=== PATIENT | female | born 1990 | race Caucasian/White ===

== ENCOUNTER → 2020-02-19 11:39 | Outpatient (BNVA) | payer MEDICAID, SELFPAY | PROVIDERS: PCP Physician Assistant Medical; Referring Provider Physician Assistant Medical; Visit Provider Obstetrics & Gynecology | DX: Z76.89 Persons encountering health services in other specified circumstances (principal) ==

== ENCOUNTER 2020-06-20 11:18 | Outpatient (REF) | payer MEDICAID, SELFPAY ==
[2020-06-21 03:30] LABS: CT PCR NOT DETECTED (Not Detect.); NG PCR NOT DETECTED (Not Detect.)
[2020-06-21 12:33] LABS: BV Int Neg Control Negative (Negative); BV Int Pos Control Positive (Positive)
[2020-06-26 10:22] LABS: HPV 16 RNA NOT DETECTED (NOT DETECTED); HPV mRNA E6/E7 rflx Detected (Not Detected)
== END 2020-06-20 11:19 | disposition home or self-care (01) ==
LOC: HO.LAB 11:18
PROVIDERS: Visit Provider Obstetrics & Gynecology
DX: Z30.09 Encounter for other general counseling and advice on contraception (principal); Z11.51 Encounter for screening for human papillomavirus (HPV); Z12.4 Encounter for screening for malignant neoplasm of cervix; N93.9 Abnormal uterine and vaginal bleeding, unspecified
CPT/HCPCS: 87480; 87491; 87510; 87591; 87624; 87625; 87660; 88141; 88142; 99212

== ENCOUNTER 2020-07-10 18:49 | Outpatient (REF) | payer MEDICAID, SELFPAY ==
--- NOTE | ~2020-07-10 | MR_ITS ---
EXAMINATION: MR LUMBAR SPINE WITHOUT CONTRAST CLINICAL INFORMATION: Paresthesia of the skin. Low back pain. Bilateral foot numbness. COMPARISON: None available. TECHNIQUE: MRI of the lumbar spine was obtained using routine sequences without contrast. FINDINGS: Normal anatomic alignment. Moderate degenerative disc disease at L4-L5 and L5-S1. Associated mild mixed Modic type discogenic endplate changes including minimal Modic type I discogenic edema at L4-L5. No additional suspicious marrow edema. The vertebral body heights are largely maintained. The conus medullaris terminates at the level of L1-L2. The distal spinal cord is normal in appearance. Mild subcutaneous edema within the soft tissues of the back from L1-L4. No additional significant abnormalities of the paraspinal musculature. Limited evaluation of the intra-abdominal structures without significant abnormalities. The abdominal aorta is of normal contour and caliber. AXIAL SPINAL LEVELS: L1-L2: Normal annular contour. There is mild to moderate bilateral facet joint arthropathy. There is no neural foraminal stenosis. There is no spinal canal stenosis. L2-L3: Shallow diffuse disc bulge. There is moderate bilateral facet joint arthropathy. There is no neural foraminal stenosis. There is no spinal canal stenosis. L3-L4: Shallow diffuse disc bulge. There is mild to moderate bilateral facet joint arthropathy. There is no neural foraminal stenosis. There is no spinal canal stenosis. L4-L5: Mild diffuse disc bulge. There is moderate bilateral facet joint arthropathy. There is moderate right and mild left neural foraminal stenosis. There is mild narrowing of the subarticular zones with no overt spinal canal stenosis centrally. L5-S1: Mild diffuse disc bulge with superimposed shallow central disc protrusion. There is mild bilateral facet joint arthropathy. There is mild to moderate bilateral neural foraminal stenosis. There is no spinal canal stenosis. MR/MR lumbar spine wo con IMPRESSION: Mild to moderate multilevel degenerative spondyloarthropathy of the lumbar spine as described in detail above. Most notably, mild to moderate neural foraminal stenoses at L4-L5 and L5-S1. Mild narrowing of the subarticular zones at L4-L5. No overt spinal canal stenosis.
== END 2020-07-10 18:50 | disposition home or self-care (01) ==
LOC: HO.MRI 18:49
PROVIDERS: Visit Provider Physician Assistant Medical
DX: R20.2 Paresthesia of skin (principal)
CPT/HCPCS: 72148

== ENCOUNTER 2020-07-10 20:05 | Emergency (ER) | payer MEDICAID, SELFPAY ==
[2020-07-10 20:15] VITALS: BP 97/70; PULSE 66; RESP 18; TEMP 36.7; O2SAT 100; BMI 32.8
== END 2020-07-10 21:49 | disposition left against medical advice (07) ==
PROVIDERS: Emergency Provider Emergency Medicine
DX: M54.5 Low back pain (principal)
CPT/HCPCS: 99281; 99282

== ENCOUNTER → 2020-08-14 11:07 | Outpatient (BNVA) | payer MEDICAID, SELFPAY | PROVIDERS: Visit Provider Obstetrics & Gynecology ==

== ENCOUNTER 2020-08-20 12:19 | Outpatient (REF) | payer MEDICAID, SELFPAY ==
[2020-08-20 14:01] LABS: Hematocrit 35.4 % (37-47); Hemoglobin 11.3 g/dl (12.0-16.0); Mean Corpuscular HGB Conc 31.9 g/dl (31.0-35.0); Mean Corpuscular Hemoglobin 28.8 pg (27.0-33.0); Mean Corpuscular Volume 90.3 fL (80-98); Mean Platelet Volume 11.9 fL (9.4-12.3); Platelet Count 240 X10*3/uL (160-400); Red Blood Count 3.92 X10*6/uL (4.20-5.50); Red Cell Distribution Width 13.3 % (11.0-16.0); White Blood Count 5.9 X10*3/uL (4.8-10.8)
[2020-08-20 14:29] LABS: HCG Quantitative < 2 mIU/mL; TSH reflex Free T4 0.89 uIU/mL (0.32-4.0)
[2020-08-21 06:42] LABS: Triiodothyronine T3 Free 2.6 pg/mL (2.3-4.2)
== END 2020-08-20 12:20 | disposition home or self-care (01) ==
LOC: HO.LAB 12:19
PROVIDERS: Visit Provider Obstetrics & Gynecology
DX: N92.0 Excessive and frequent menstruation with regular cycle (principal); N93.9 Abnormal uterine and vaginal bleeding, unspecified
CPT/HCPCS: 36415; 84443; 84481; 84702; 85027

== ENCOUNTER 2020-09-02 15:02 | Outpatient (REF) | payer MEDICAID, SELFPAY ==
--- NOTE | ~2020-09-02 | US_ITS ---
EXAMINATION: US PELVIS CLINICAL INFORMATION: Abnormal uterine and vaginal bleeding. COMPARISON: None. TECHNIQUE: Ultrasound of the pelvis is performed using both transabdominal and transvaginal transducers along with Doppler. Transvaginal ultrasound was refused by patient. FINDINGS: Uterus: The uterus is anteverted and measures 7.2 cm in length, 3.7 cm AP and 4.4 cm in transverse dimension. The double wall endometrial thickness is 1.0 cm. The uterus is smooth in contour and has normal myometrial echogenicity. No visible fibroid. Adnexa: Both ovaries are visualized. There is normal color flow to the adnexa. There is no ovarian torsion. There is no pelvic ascites or fluid collection. Right ovary measures 3.0 x 2.3 x 3.7 cm. Volume 13.4 mL. No focal lesions seen. Left ovary measures 1.9 x 2.0 x 2.0 cm. Volume 4.0 mL. No focal lesions seen. There is no free fluid in the cul-de-sac. US/US pelvic complete IMPRESSION: Unremarkable uterus and ovaries on transabdominal ultrasound.
== END 2020-09-02 15:03 | disposition home or self-care (01) ==
LOC: HO.US 15:02
PROVIDERS: Visit Provider Obstetrics & Gynecology
DX: N93.9 Abnormal uterine and vaginal bleeding, unspecified (principal)
CPT/HCPCS: 76856

== ENCOUNTER 2020-09-04 14:06 | Outpatient (REF) | payer MEDICAID, SELFPAY | END 2020-09-04 14:07 | disposition home or self-care (01) | LOC: HO.LAB 14:06 | PROVIDERS: Visit Provider Obstetrics & Gynecology | DX: R87.610 Atypical squamous cells of undetermined significance on cytologic smear of cervix (ASC-US) (principal); R87.810 Cervical high risk human papillomavirus (HPV) DNA test positive | CPT/HCPCS: 57454; 88305 ==

== ENCOUNTER → 2020-10-01 14:56 | Outpatient (BNVA) | payer MEDICAID, SELFPAY | PROVIDERS: Visit Provider Obstetrics & Gynecology ==

== ENCOUNTER 2023-06-22 09:07 | Outpatient (AMB) | payer OTHER, SELFPAY ==
--- NOTE | 2023-06-22 09:10 | MHC.OFFVIS ---
Intake Visit Reasons: CIC/Urinary Retention/Self Cathing 4x Intake Note: New Patient presents for initial visit for retention Urology Medications: none Blood Thinner: none 194ml's Client Director Required: No Accompanied by: Self / Same As Patient Allergies latex [LATEX] Allergy (Intermediate, Verified 06/22/23 09:42) RED ITCHY SWELLING NO DIFFICULTY BREATHING Medication List - Last Reconciled 06/22/23 by ZULEMA Robb bupropion HCl SR 150 mg PO BID famotidine 20 mg PO BID levothyroxine 75 mcg PO DAILY sertraline 100 mg PO DAILY HPI Comments Details: Brie is a 32-year-old female patient of Dr. Cooper. She has a past medical history of bipolar, anxiety, and depression. She presents to the office today as a new patient for incomplete bladder emptying. In discussion with the patient today she reports previously following up here in 2019 prior to her incarceration. She reports catheterizing herself up to 6 times per day due to incomplete bladder emptying. When asked she denies urinary urgency, urinary frequency, incontinence, nocturia, hematuria, dysuria, foul smelling urine, changes to urinary stream, flank pain, fever, and or chills. She feels her main concern is the pain she experiences to her urethra upon catheterization. She denies any signs or symptoms of urinary tract infection. She reports that although she has been performing CIC for over 4 years she has only had one urinary tract infection since doing so. Discussed at length potential causes and affects of incomplete bladder emptying. Discussed obtaining retroperitoneal ultrasound and BUN and creatinine for further assessment evaluation. Discussed possible near future in office cystoscopy for further assessment evaluation. In office urinalysis results reviewed with the patient today. PVR 194 mLs. She otherwise offers no other issues or concerns at this time. [facility] Medical History Anxiety Acute depression Bipolar 1 disorder Patient denies medical problems Surgical History History of appendectomy History of facial surgery Family History Father Heart disease Heart attack Prostate cancer Mother Heart attack Thyroid cancer Substance abuse Stroke Social History Alcohol intake: current Alcohol intake frequency: holidays/special occasions only Gender identity: Female Female Reproductive History Menstrual Age of Menarche: 17 Review of Systems Const All systems reviewed & are unremarkable except as noted in HPI and below Reports no additional complaints Eyes Reports no additional complaints ENT Reports no additional complaints Card Reports no additional complaints Resp Reports no additional complaints GI Reports no additional complaints Reports as per HPI Musc Reports no additional complaints Neuro Reports no additional complaints Psych Reports as per HPI Endo Reports no additional complaints Yon/Lymph Reports no additional complaints Aller/Immun Reports no additional complaints Physical Exam Const General: cooperative, healthy appearing, comfortable, no acute distress, well developed, alert and awake Nutritional Appearance: overweight Orientation/consciousness: patient oriented x3 Limitations: no limitations HEENT Head: Yes normal to inspection, Yes normocephalic and Yes atraumatic Ears: hearing grossly normal bilaterally Eyes General: appearance normal, both eyes and all related structures Neck Neck: Yes normal visual inspection and Yes trachea midline Chest Chest palpation & inspection: normal inspection of the chest Resp Effort & Inspection: normal respiratory effort and able to speak in complete sentences Cardio Rate: regular rate GI Inspection: Yes normal to inspection General: Yes bladder normal to palpation and Yes no CVA tenderness External Female Exam: No lesion Speculum Exam - Vagina: normal appearance of the vagina, normal palpation, normal vaginal discharge and not erythematous Speculum Exam - Cervix: normal appearance of the cervix and normal palpation Bimanual exam- vagina & uterus: normal bimanual exam, normal palpation, uterine size normal, bladder normal to palpation, consistency normal and normal palpation Bimanual Exam- Adnexa, other: normal adnexae, no masses and no tenderness Back/Spine/Pelvis Back: no CVA tenderness Skin General skin exam: no rashes or lesions noted Neuro General: patient oriented x3 Extrem General: Yes normal to inspection Psych Appearance: grossly normal and well kempt Mental Status: mental status grossly normal Speech and movement: Normal speech and movement present and Clear speech present Affect: normal affect Attitude: cooperative Thought process: Normal thought process present Thought content: Normal thought content present Insight: Fair insight present (Psych) Judgement: Fair judgement present (Psych) Office Procedures Post Void Residual Post Residual Void Post Void Residual (PVR): 194 [id number] Void Residual by ultrasound Results AMB Urinalysis, Automated UA Leukoctes 0 Ayaz/uL Last Edit by Lexy Scott on 06/22/23 09:39 UA Nitrite Negative Last Edit by Lexy Scott on 06/22/23 09:39 UA Urobilinogen 0.2 mg/dL Last Edit by Lexy Scott on 06/22/23 09:39 UA Protein 30 mg/dL Last Edit by Lexy Scott on 06/22/23 09:39 UA pH 8.5 Last Edit by Lexy Scott on 06/22/23 09:39 UA Blood 0 Rivera/uL Last Edit by Lexy Scott on 06/22/23 09:39 UA Specific [place] 1.010 Last Edit by Lexy Scott on 06/22/23 09:39 UA Ketone Positive Last Edit by Lexy Scott on 06/22/23 09:39 UA Bilirubin 0 mg/dL Last Edit by Lexy Scott on 06/22/23 09:39 UA Glucose 0 mg/dL Last Edit by Lexy Scott on 06/22/23 09:39 Results Reviewed Results Reviewed: Laboratory Last Values Urine pH (Auto) 8.5 06/22/23 09:37 Specific [place] (Auto) 1.010 06/22/23 09:37 Urine Protein (Auto) 30 mg/dL 06/22/23 09:37 Glucose (UA)(Auto) 0 mg/dL 06/22/23 09:37 Urine Ketones (Auto) Positive 06/22/23 09:37 Urine Blood (Auto) 0 Rivera/uL 06/22/23 09:37 Urine Nitrite (Auto) Negative 06/22/23 09:37 Urine Bilirubin (Auto) 0 mg/dL 06/22/23 09:37 Urine Urobilinogen (Auto) 0.2 mg/dL 06/22/23 09:37 Leukocyte Esterase (Auto) 0 Ayaz/uL 06/22/23 09:37 Assessment & Plan Assessment & Plan (1) Incomplete bladder emptying: Code(s): R33.9 - Retention of urine, unspecified Category: Medical Plan In office urinalysis results reviewed with the patient today; as noted above. PVR 194 mL. Discussed at length potential causes and affects of incomplete bladder emptying. Start bethanechol as discussed and prescribed. Will obtain BUN and creatinine for further assessment evaluation. Will obtain retroperitoneal ultrasound for further assessment evaluation. Discussed at length potential for near future in office cystoscopy for further assessment evaluation. Continue CIC 6 times per day indefinitely; will send script to [facility] for 12 [place] catheters Discussed, educated, and stressed the importance of continuing to drink plenty of water daily. Follow-up in 1-3 months with imaging and labs to be completed prior; or sooner with any issues, concerns, and or questions. Orders: Orders AMB Urinalysis Automated Today Z13.9 - Encounter for screening, unspecified Blood Urea Nitrogen Today R33.9 - Retention of urine, unspecified AMB Post Void Residual by ultrasound Today Z13.9 - Encounter for screening, unspecified US retroperitoneal comp Today R33.9 - Retention of urine, unspecified Creatinine Today R33.9 - Retention of urine, unspecified Medications: New bethanechol chloride 50 mg PO BID 30 days 60 tabs 2RF N39.0 - Urinary tract infection, site not specified Patient Instructions: The patient had an opportunity to ask questions regarding the treatment plan. All questions were answered. Physical exam, labs, and imaging were discussed and reviewed in detail. As well as risks, benefits, and discussion of treatment choices. No major barriers to understanding were identified. The patient expressed understanding and agreement with the above treatment plan. The patient was made aware they should contact our office by phone for worsening of their current condition, the appearance of new symptoms, or with any questions or concerns. Compliance is encouraged with any medications and follow up testing that is ordered. It is a privilege to be allowed the opportunity to participate in? your urological care.? Again, if you have any questions or concerns If you have any questions or concerns please do not hesitate to contact me. The office is [phone]. This note is constructed using voice recognition software. While every effort has been made to ensure accuracy neurocritical care physician errors may have been included. Yours sincerely, ZULEMA Robb Coding Level of Care Code New Pt Level 4 (85727) Diagnoses Incomplete bladder emptying R33.9 CPT Codes Post Residual Void - PVR CPT Code: 43043-Rdzm Void Residual by ultrasound ([id number])
== END 2023-06-22 09:50 | disposition home or self-care (01) ==
PROVIDERS: PCP Family Medicine; Visit Provider Nurse Practitioner Family
DX: R33.9 Retention of urine, unspecified (principal)
CPT/HCPCS: 99204

== ENCOUNTER → 2023-06-22 09:07 | Outpatient (BNVA) | payer OTHER, SELFPAY | PROVIDERS: PCP Family Medicine; Visit Provider Nurse Practitioner Family | DX: R33.9 Retention of urine, unspecified (principal); N39.0 Urinary tract infection, site not specified | CPT/HCPCS: 51798; 81003 ==

== ENCOUNTER 2023-08-29 12:59 | Outpatient (REF) | payer OTHER, SELFPAY ==
--- NOTE | ~2023-08-29 | US_ITS ---
EXAMINATION: US RETROPERITONEAL LIMITED (RENAL ONLY) CLINICAL INFORMATION: Retention of urine, unspecified. COMPARISON: None available. TECHNIQUE: Real-time imaging of the kidneys. Technically limited study secondary to body habitus. FINDINGS: RIGHT KIDNEY: 12.6 x 4.5 x 4.3 cm (SAG x AP x TRV). No hydronephrosis. No renal calculi. Renal cortical thickness is normal. Limited visualization. LEFT KIDNEY: 12.6 x 5.6 x 6.1 cm (SAG x AP x TRV). No hydronephrosis. No renal calculi. Renal cortical thickness is normal. Limited visualization. Bladder was not adequately distended and therefore ultrasound exam of the bladder was rescheduled per director of pulmonary unit's statement. US/US renal BI IMPRESSION: No hydronephrosis. No renal calculi. Bladder was not adequately distended and therefore ultrasound exam of the bladder was rescheduled for another date per director of pulmonary unit's statement.
== END 2023-08-29 13:00 | disposition home or self-care (01) ==
LOC: HO.US 12:59
PROVIDERS: PCP Family Medicine; Visit Provider Nurse Practitioner Family
DX: R33.9 Retention of urine, unspecified (principal)
CPT/HCPCS: 76775

== ENCOUNTER 2023-08-31 10:13 | Outpatient (REF) | payer OTHER, SELFPAY ==
--- NOTE | ~2023-08-31 | US_ITS ---
EXAMINATION: US PELVIS LIMITED (BLADDER) CLINICAL INFORMATION: Incomplete bladder emptying. COMPARISON: Renal ultrasound 08/29/2023. TECHNIQUE: Real-time imaging of the bladder. FINDINGS: BLADDER: Well-distended and unremarkable. Bilateral ureteral jets are demonstrated. Prevoid bladder volume is 344 mL. Postvoid bladder volume is 45.7 mL. US/US bladder IMPRESSION: Postvoid bladder volume is 45.7 mL.
== END 2023-08-31 10:14 | disposition home or self-care (01) ==
LOC: HO.US 10:13
PROVIDERS: PCP Family Medicine; Visit Provider Nurse Practitioner Family
DX: R33.9 Retention of urine, unspecified (principal)
CPT/HCPCS: 76857